=== PATIENT | female | born 1970 | race Caucasian/White ===

== ENCOUNTER 2024-08-08 01:15 | Emergency (ER) | payer MEDICAID, SELFPAY ==
[2024-08-08 01:17] VITALS: BMI 46.3
[2024-08-08 01:24] VITALS: BP 161/91; PULSE 109; RESP 18; TEMP 36.7; O2SAT 99
--- NOTE | 2024-08-08 01:32 | XR_ITS ---
Examination: Shoulder,left, 3 views Technique: Shoulder AP internal rotation, AP external rotation, Y view shoulder, 3 views Exam date and time :August 08, 2024 0150 hrs. Indications: Left shoulder pain radiating down the arm today Findings: Mild narrowing glenohumeral joint Mild calcific tendinitis No fracture or shoulder dislocation Impression: Mild narrowing glenohumeral joint Mild calcific tendinitis
--- NOTE | 2024-08-08 01:33 | PD.EDEXREM ---
ED Extremity Problem RME/HPI General Chief complaint: Extremity Problem,Nontraumatic Stated complaint: LEFT SHOULDER PAIN RADIATES DOWN ARM Time Seen by Provider: 08/08/24 01:40 Source: patient Arrival date/time: 08/08/24 01:15 53-year-old female with no significant past medical history presents emergency department complaining of left shoulder that radiates down to her left arm and has been ongoing for several years. Patient denies any recent trauma or injury. Patient denies any fever, chills, cough, shortness of breath, difficulty breathing, chest pain, palpitations, or any other associated symptom. Mode of arrival: ambulatory Limitations: no limitations Related Data Previous Rx's ?Medication ?Instructions ?Recorded acetaminophen 300 mg-codeine 30 mg 1 tab PO TID PRN pain #20 tabs 12/16/23 tablet acetaminophen 300 mg-codeine 30 mg 1 tab PO Q12H #20 tabs 12/17/23 tablet acetaminophen 500 mg capsule 500 mg PO Q6H PRN pain #30 caps 08/08/24 cyclobenzaprine 10 mg tablet 10 mg PO TID PRN muscle spasm #10 08/08/24 tabs Allergies Allergy/AdvReac Type Severity Reaction Status Date / Time amoxicillin Allergy Rash Verified 05/23/12 13:43 NSAIDS (Non-Steroidal Allergy Verified 12/16/23 17:49 Anti-Inflamma Penicillins Allergy Verified 08/08/24 01:17 Review of Systems Review of Systems Systems Reviewed: All systems reviewed, normal except as documented Constitutional Constitutional: Reports system reviewed and no additional complaints, except as documented, Denies body ache(s), Denies chills and Denies fever(s) Eyes Eyes: Reports system reviewed and no additional complaints, except as documented and Denies change in vision ENT Ears, Nose, Mouth, and Throat: Reports system reviewed and no additional complaints, except as documented, Denies disequilibrium, Denies dizziness, Denies sore throat and Denies vertigo Cardiovascular Cardiovascular: Reports system reviewed and no additional complaints, except as documented, Denies chest pain and Denies dyspnea Respiratory Respiratory: Reports system reviewed and no additional complaints, except as documented, Denies chest congestion, Denies cough and Denies dyspnea Gastrointestinal Gastrointestinal: Reports system reviewed and no additional complaints, except as documented, Denies abdominal pain, Denies nausea and Denies vomiting Musculoskeletal Musculoskeletal: Reports system reviewed and no additional complaints, except as documented, Denies abnormal gait and Reports arthralgias Integumentary/Breasts Skin/Breast: Reports system reviewed and no additional complaints, except as documented, Denies erythema, Denies rash and Denies wounds Neurologic Neurologic: Reports system reviewed and no additional complaints, except as documented, Denies abnormal gait, Denies disequilibrium, Denies dizziness and Denies vertigo Past Medical History Past Medical History CARDIAC: Negative Cardiac Disorders RESPIRATORY: Negative Asthma GENITOURINARY: Negative Renal Disease ENDOCRINE: Negative Diabetes Mellitus Type 2 HEMATOLOGIC: Negative Sickle Cell Disease Social History SMOKING STATUS: Never smoker ED Exam General Limitations: Present no limitations General appearance: Present alert and in no apparent distress Head Head exam: Present atraumatic Eye Eye exam: Present normal appearance, PERRL and EOMI ENT ENT exam: Present normal exam, normal oropharynx and mucous membranes moist Neck Neck exam: Present normal inspection, full ROM and trachea midline Chest Chest inspection: Present normal inspection and symmetric chest wall rise Respiratory Respiratory exam: Present normal lung sounds bilaterally Cardiovascular Cardiovascular exam: Present regular rate, normal rhythm and normal heart sounds Abdominal Exam Abdominal exam: Present soft and normal bowel sounds Extremities Exam Extremities exam: Present normal inspection and full ROM Expanded Upper Extremity Exam Shoulder exam: Present tenderness (Left shoulder); Absent swelling or deformity Vascular exam: Normal capillary refill Back Exam Back exam: Present normal inspection and full ROM Neurological Exam Neurological exam: Present alert, oriented X3 and CN II-XII intact Psychiatric Psychiatric exam: Present normal affect and normal mood Skin Skin exam: Present warm, dry, intact and normal color Course Quality Measures none Orders Category Date Time Status EKG (ED ONLY) *Do not use* NOW Care 08/08/24 01:32 Completed EKG (ED Only) Stat Exams 08/08/24 01:32 Ordered XR shoulder LT min 2V Stat Exams 08/08/24 01:32 Taken Diazepam [Valium] Med 08/08/24 01:33 Discontinued 5 mg PO X1 ONE HYDROcodone*/APAP 5/325 [[place] 5/325] Med 08/08/24 01:33 Discontinued 1 tab PO X1 ONE Vital Signs Vital signs: Vital Signs Temperature 98.1 F 08/08/24 01:24 Pulse Rate 109 H 08/08/24 01:24 Respiratory Rate 18 08/08/24 01:24 Blood Pressure 161/91 H 08/08/24 01:24 Pulse Oximetry (%) 99 08/08/24 01:24 Oxygen Delivery Method Room Air 08/08/24 01:24 99% room air within normal limits Procedures -ED EKG Interpretation #1: Date of EK08/08/24 Time of EK:39 Rate: 86 Interpretation: Interpreted by me EKG Impression: Normal sinus rhythm, No acute ST-T changes, No ectopy, No ischemic changes and Normal QRS Extremity Problem MDM Narrative MDM Narrative:: 53-year-old female with no significant past medical history presents emergency department complaining of left shoulder that radiates down to her left arm and has been ongoing for several years. Patient denies any recent trauma or injury. Patient denies any fever, chills, cough, shortness of breath, difficulty breathing, chest pain, palpitations, or any other associated symptom. Patient's left shoulder full active range of motion but with some pain. X-ray of the left shoulder negative for any acute process based on my interpretation. Patient's left upper extremity neurovascularly intact. Patient instructed to follow-up with primary care provider upon discharge and return to emergency department for any worsening symptoms or as needed. Patient data External records reviewed:: [facility] previous records Clinical information provided by:: patient Social determinants that could affect healthcare access:: none Patient has the following chronic illnesses:: See chart How is presenting disease/condition affected by chronic disease/condition?: uneffected by Evaluation data The following diagnostics were reviewed and interpreted by me:: radiology exam(s) and EKG tracing(s) Lab and/or radiology exams considered but not ordered:: Ordered Interpretation Summary: Interpreted by me Medications / Prescriptions Medications or Prescriptions considered but not ordered:: Ordered Medication administrations:: Medication Administration History Discontinued Medications Hydrocodone Bitart/Acetaminophen (Hydrocodone/Apap 5/325 Tablet) 1 tab PO X1 ONE Stop: 08/08/24 01:34 Last Admin: 08/08/24 01:58 Dose: 1 tab Documented By: ZENY Diazepam (Diazepam 5 Mg Tablet) 5 mg PO X1 ONE Stop: 08/08/24 01:34 Last Admin: 08/08/24 01:58 Dose: 5 mg Documented By: ZENY Given Consultations Consultation(s) initiated? (list below): No Diagnosis Extremity Problem Differential Diagnosis: other (Shoulder sprain, calcific tendinitis, ) Most likely diagnosis given after review of the tests above:: Shoulder pain Admission Indicated Admission indicated?: not indicated Admission Request Was there a request for admission?: No Disposition Plan Disposition Plan: Discharge Discharge Attestation Discharge Attestation: The patient and all family members were given an opportunity to ask questions and understood the discharge instructions. Discharge instructions specifically effects, indications for sooner follow up or return to the emergency department, and the expected course of current diagnosis. Patient condition: Stable Discharge Plan Plan Patient Disposition: HOME (Self Care) Disposition Comment: Stable Prescriptions/Referrals Prescriptions/Med Rec: New cyclobenzaprine 10 mg tablet 10 mg PO TID PRN (Reason: muscle spasm) Qty: 10 0RF acetaminophen 500 mg capsule 500 mg PO Q6H PRN (Reason: pain) Qty: 30 0RF No Action acetaminophen-codeine 300-30 mg tablet 1 tab PO TID PRN (Reason: pain) Qty: 20 0RF acetaminophen-codeine 300-30 mg tablet 1 tab PO Q12H Qty: 20 0RF Problem List Clinical Impression: Chronic shoulder pain Patient/Caregiver Discharge Instructions Discharge Activity: activity as tolerated Education Materials: ED Arthralgia, ED Shoulder Pain, Uncertain Cause Additional Instructions: Take medication as prescribed. Follow-up with primary care provider in 2 to 3 days and request referral physical therapy or MRI of left shoulder if symptoms persist. Return to emergency department for any worsening symptoms or as needed. Print Language: Amharic Stand Alone Forms: [facility] Award Info., Patient Portal Info Letter Attestation Attestation The patient was seen by the midlevel practitioner. I, the co-signing physician, was present during the entire ER visit. While I did not physically examine the patient, I was available for consultation as needed.
[2024-08-08] MEDS: DIAZEPAM 5 MG TABLET PO (01:58)
[2024-08-08] MEDS: HYDROcodone/APAP 5/325 TABLET 1 TAB PO (01:58)
== END 2024-08-08 02:30 | disposition home or self-care (01) ==
LOC: SERX 04:28
PROVIDERS: Emergency Provider Emergency Medicine; PCP Family Medicine
DX: M25.512 Pain in left shoulder (principal); G89.29 Other chronic pain
CPT/HCPCS: 73030; 93005; 99283; A9270